=== PATIENT | male | born 1980 | race Caucasian/White ===

== ENCOUNTER 2018-02-13 10:48 | Emergency (ER) | payer SELFPAY ==
[~2018-02-13] VITALS: Ht 172.7 cm; Wt 80.0 kg
[2018-02-13 11:59] LABS: HEMATOCRIT. 37.2 % (42.0-52.0); HEMOGLOBIN. 12.8 g/dL (14.0-18.0); MEAN CORPUSCULAR HEMOGLOBIN 31.3 pg (28.0-32.0); MEAN CORPUSCULAR VOLUME 91.1 fL (80.0-94.0); MEAN PLATELET VOLUME 6.6 fl (7.4-10.4); PLATELET 159 x1000/uL (130-400); RED BLOOD CELL COUNT 4.09 mill/uL (4.7-6.1); RED CELL DISTRIBUTION WIDTH 18.4 % (11.6-14.6)
[2018-02-13 12:10] LABS: CHLORIDE 102 mEq/L (98-107)
[2018-02-13 12:32] LABS: ETHANOL BLOOD 415 mg/dL
[2018-02-13] MEDS ORDERED: FAMOTIDINE 20MG/2ML VIAL IV STA (12:34)
[2018-02-13] MEDS ORDERED: SODIUM CHLORIDE 0.9% 1,000 ML IV ONE (12:34)
[2018-02-13 12:57] LABS: NUCLEATED RED BLOOD CELLS 2 /100 WBC
[2018-02-13 12:58] LABS: PLATELET ESTIMATE NORMAL
[2018-02-13] MEDS: MAGNESIUM/ALUMINUM HYDROXIDE/SIMETHICONE 30ML UDC PO STA ×2 (13:10→13:26)
[2018-02-13] MEDS: VISCOUS LIDOCAINE 2% 15 ML UDC PO STA ×2 (13:10→13:25)
[2018-02-13 18:01] VITALS: BP 122/70
== END 2018-02-13 18:23 | disposition home or self-care (01) ==
LOC: ER 10:48
DX: F10.229 Alcohol dependence with intoxication, unspecified (principal); K85.90 Acute pancreatitis without necrosis or infection, unspecified; R79.89 Other specified abnormal findings of blood chemistry; Y90.8 Blood alcohol level of 240 mg/100 ml or more
CPT/HCPCS: 36415; 80053; 83690; 85025; 96374; 99284; G0482; J3490; J7030